=== PATIENT | male | born 1965 | race Caucasian/White ===

== ENCOUNTER → 2019-03-04 09:04 | Outpatient (CLI) | payer OTHER, SELFPAY ==
--- NOTE | 2019-03-04 09:21 | XR_ITS ---
PROCEDURE: XR HIP RT 2-3V W/PELVIS CLINICAL INDICATION: RT HIP PAIN COMPARISON: No exams were available for comparison FINDINGS: There are mild osteoarthritic changes of both hips. There is a lucency along the lateral mid aspect of the acetabulum noted on the AP view. This could be due to an ununited ossification center or a nondisplaced fracture. This does not have a correlate on the left side. Small area of sclerosis which may represent a small bone island is present in the right femoral neck. IMPRESSION: 1. Mild bilateral osteoarthritic changes of the hips. 2. Curvilinear lucency along the posterior acetabulum which may be due to an ununited ossification center or nondisplaced fracture. Please correlate with clinical parameters. CT or MRI may provide further evaluation if clinically desired Dictated by: Mayank Scott MD 03/04/2019 12:37 Electronically signed by Mayank Scott MD in [place] 03/04/2019 12:37
== END ==
PROVIDERS: PCP Family Medicine; Visit Provider Family Medicine
DX: M25.551 Pain in right hip (principal)
CPT/HCPCS: 73502

== ENCOUNTER 2022-11-26 08:02 | Emergency (ER) | payer OTHER, SELFPAY ==
[2022-11-26 08:05] VITALS: BP 135/86; PULSE 76; RESP 18; TEMP 36.7; O2SAT 97
--- NOTE | 2022-11-26 08:38 | EXP.UTC ---
Discharge Plan Disposition Patient Disposition: Home, Self-Care Condition: Good Prescriptions Prescriptions: New erythromycin 5 mg/gram (0.5 %) ointment 0.5 inch ophthalmic (eye) BID 10 Days Qty: 3.5 0RF Referrals Follow up/Referrals: Provider,Referral, MD [Primary Care Provider] - See instructions Activity Restrictions/Add. Instructions Additional Instructions/Restrictions: If Stye (hordeolum) does not reduce in size withing two weeks then go to dairy cattle farmer for evaluation. Clinical Impressions Clinical Impression: Hordeolum externum of right upper eyelid Instructions Patient Instructions: DI for Hordeolum Discharge ED Provider: Angela Rand [facility] [place] [facility] HPI General Stated complaint: EYE INFECTION Mode of Arrival: Ambulatory Source of Information: Patient Limitations: No Limitations Time Seen by Provider: 11/26/22 08:25 Description of Symptoms (Recalled from Triage Doc. by RN): eye infection in his right eye. He states that its swollen and hurts HEENT Symptoms (Recalled from RN notes): Yes Resp Symptoms (Recalled from RN notes): No Skin Symptoms (Recalled from RN notes): No MS Symptoms (Recalled from RN notes): No Functional Status (Recalled from RN notes): n/a History of Present Illness Provider Complaint: Pt reports that for the last couple of days his eye has been sore and now upper right eyelid is red, swollen, and sore. Related Data Previous Rx's Medication Instructions Recorded erythromycin 5 mg/gram (0.5 %) eye 0.5 inch ophthalmic (eye) BID 10 11/26/22 ointment days #3.5 grams Allergies Allergy/AdvReac Type Severity Reaction Status Date / Time Penicillins Allergy Verified 11/26/22 08:28 Worker's Comp Is this a Worker's Comp case?: No [facility] Disclaimer: The information contained in this section may have been updated after the patient was seen, as this information can be updated by other users. Social History Smoking Status: Never smoker alcohol intake: current current occupational status: employed Travel in the last 8 weeks: None caffeine: Yes ROS Obtained: Yes All systems reviewed & no additional complaints except as documented Constitutional Constitutional: Reports system reviewed and no additional complaints, except as documented Eyes Eyes: Reports system reviewed and no additional complaints, except as documented, Reports as per HPI and Reports eye pain ENT Ears, Nose, Mouth, and Throat: Reports system reviewed and no additional complaints, except as documented Cardiovascular Cardiovascular: Reports system reviewed and no additional complaints, except as documented Respiratory Respiratory: Reports system reviewed and no additional complaints, except as documented Gastrointestinal Gastrointestingal: Reports system reviewed and no additional complaints, except as documented Genitourinary Male Genitourinary: Reports system reviewed and no additional complaints, except as documented Musculoskeletal Musculoskeletal: Reports system reviewed and no additional complaints, except as documented Integumentary/Breasts Skin/Breast: Reports system reviewed and no additional complaints, except as documented Neurologic Neurologic: Reports system reviewed and no additional complaints, except as documented Endocrine Endocrine: Reports system reviewed and no additional complaints, except as documented Hematologic/Lymphatic Henatologic/Lymphatic: Reports system reviewed and no additional complaints, except as documented Allergic/Immunologic Allergic/Immunologic: Reports system reviewed and no additional complaints, except as documented Physical Exam General General appearance: alert and in no apparent distress Head Head exam: atraumatic and normocephalic Eye Eye exam: Present PERRL, EOMI, periorbital swelling and periorbital tenderness Expanded Eye Exam Eyelids: left: normal inspection and right: erythema, stye and swelling eyelids Pupils: Bilateral: regular, round Scler
[2022-11-26 08:48] VITALS: BP 135/86; PULSE 76; RESP 18; TEMP 36.7; O2SAT 97
== END 2022-11-26 08:48 | disposition home or self-care (01) ==
PROVIDERS: Emergency Provider Nurse Practitioner Family
DX: H00.011 Hordeolum externum right upper eyelid (principal)
CPT/HCPCS: 99204; 99212; 99214; G0463

== ENCOUNTER 2024-11-30 09:12 | Emergency (ER) | payer OTHER, SELFPAY ==
[2024-11-30 09:18] VITALS: BP 158/86; BP 178/81; PULSE 69; RESP 16; TEMP 36.8; O2SAT 99; BMI 29.7
[2024-11-30 09:29] VITALS: BP 158/86; PULSE 66; O2SAT 99
--- OUTSIDE RECORDS SUMMARY | 2024-11-30 09:34 | XMS_ITS ---
Author Organization [facility] , [facility] Address [address] [place] [address] Phone Care Team Providers Care Wire Splicer Name Role Phone Karely DUNBAR, Marcelo York Unavailable [phone] KAMRAN CEE MD Primary Care Provider [phone] Problems Includes: Active, inactive, and resolved Problems All Visits Onset Date Resolved Date Provider Condition S tatus Joint Pain Hip Right 04/26/2019 Marcelo Cali MD Active Last Documented On 0 10:14AM ; [facility] Plan of Treatment Instructions to patient Lose weight Last Documented On 2 8:16AM ; [facility] Lose weight Last Documented On 2 8:31AM ; [facility] Assessments Includes: Assessments for all patient encounters No Assessments Recorded Instructions Includes: Instructions for all patient encounters Instructions to patient Lose weight Last Documented On 2 8:16AM ; [facility] Lose weight Last Documented On 2 8:31AM ; [facility] Medical Equipment - Implanted Devices Includes: Current and historical Devices No Medical Equipment Recorded Medications Includes: Current and historical Medications Current Medications (continue as prescribed) MOTRIN 800 MG Oral Tablet 04/26/2019 Provider: Diagnosis: Last Documented On 0 10:12AM By Uyen Edwards ; [facility], [facility] Past Medications on file Mobic 15 MG Oral Tablet 07/06/2021 - 08/05/2021 Provid er: Gino Hickman PA-C Diagnosis: take one tablet twice a day Last Documented On 2 9:32AM By Yolande Warner ; [facility], [facility] Mobic 15 MG Oral Tablet 04/26/2019 - 07/25/2019 Provid er: Marcelo Cali MD Diagnosis: once a day Last Documented On 0 11:00AM By Gino Hickman ; [facility], 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 No recent change in diet 07/06/2021 Last Documented On 2 11:49AM ; [facility], [facility] Not a current smoker. 07/06/2021 Last Documented On 2 11:49AM ; [facility], [facility] Non-smoker 07/06/2021 Last Documented On 2 11:49AM ; [facility], [facility] No tobacco use 04/26/2019 Last Documented On 0 1:51PM ; [facility], [facility] Smoking status : Never smoker 04/26/2019 Last Documented On 0 1:51PM ; [facility] Alcohol use 04/26/2019 Last Documented On 0 1:51PM ; [facility], [facility] Caffeine use 04/26/2019 Last Documented On 0 1:51PM ; [facility], [facility] Exercising regularly 04/26/2019 Last Documented On 0 1:51PM ; [facility], [facility] No recent change in diet 04/26/2019 Last Documented On 0 1:51PM ; [facility], [facility] Not a current smoker 04/26/2019 Last Documented On 0 1:51PM ; [facility], [facility] Not using drugs 04/26/2019 Last Documented On 0 1:51PM ; [facility], [facility] Medical History Includes: Medical History in patient's chart Description Last Updated History of Fractures 07/06/2021 Last Documented On 2 11:49AM ; [facility] No recent immunization for pneumococcal pneumonia 07/06/2021 Last Documented On 2 11:49AM ; [facility] Recent immunization for flu 07/06/2021 Last Documented On 2 11:49AM ; [facility], [facility] heartburn/acid reflux 04/26/2019 Last Documented On 0 1:51PM ; [facility] A previous fracture 04/26/2019 Last Documented On 0 1:51PM ; [facility], [facility] Arthritic joint problems 04/26/2019 Last Documented On 0 1:51PM ; [facility], [facility] Family History Includes: Family History in patient's chart Description Last Updated Family history of cancer 04/26/2019 Last Documented On 0 1:51PM ; [facility] Family history of heart disease 04/26/19 Last Documented On 0 1:51PM ; [facility] Review of Systems Review of Systems not supported for this document type No Review of Systems Recorded Mental Status Description No anxiety Functional Status No Functional Status Recorded Physical Exam Physical Exam not supported for this document type No Physical Exam Recorded Immunizations Includes: Immunizations in patient's chart Vaccine Dose # Date Site Reaction(s) Status Source Influenza 1 11/07/2020 Complete (Reported) Patient Last Documented On 2 9:10AM ; [facility], [facility] Allergies Includes: Active, inactive, and resolved Allergies Substance Type Reaction Onset Date Resolved Date Statu s Penicillin G Benzathine Allergy 04/26/2019 Active Last Documented On 2 8:16AM ; [facility], [facility] Insurance Includes: Active Insurance Policies Plan Name Member ID Group # Subscriber Relationship Effect chico Dates 1 - [facility] [id number] Waqar Smith Self 02/06/2019 - Unknown Clinical Notes Includes: Signed Clinical Notes starting from 01/20/2022 No Clinical Notes Recorded
--- OUTSIDE RECORDS SUMMARY | 2024-11-30 09:35 | XMS_ITS | Clinical Summary ---
Author Organization [facility] , [facility] Address [address] [place] [address] Phone Care Team Providers Care Gauge And Weigh Machine Operator Name Role Phone Karely DUNBAR, Marcelo York Unavailable [phone] KAMRAN CEE MD Primary Care Provider [phone] Reason for Visit and Chief Complaint MRI Problems Includes: Problems addressed during this encounter and other active Problems All Visits Onset Date Resolved Date Provider Condition S tatus Joint Pain Hip Right 04/26/2019 Marcelo Cali MD Active Last Documented On 0 10:14AM ; [facility] Plan of Treatment No Plan of Treatment Recorded Assessments Includes: Assessments from this encounter No Assessments Recorded Medical Equipment - Implanted Devices Includes: Current Devices No Medical Equipment Recorded Medications Includes: Medications discussed during this encounter and other current Medications Current Medications (continue as prescribed) MOTRIN 800 MG Oral Tablet 04/26/2019 Provider: Diagnosis: Last Documented On 0 10:12AM By Uyen Edwards ; [facility] Medications Administered Includes: Administered Medications from this encounter No Administered Medications Recorded Results Includes: Results discussed during this encounter No Results Recorded For Specified Dates History of Present Illness Includes: History of Present Illness from this encounter No History of Present Illness Recorded Social History No Social History Recorded - Smoking Status Unknown Medical History Includes: Medical History addressed during this encounter No Medical History Recorded Family History Includes: Family History addressed during this encounter No Family History Recorded Review of Systems Includes: Review of Systems from this encounter No Review of Systems Recorded Mental Status Includes: Mental Status from this encounter No Mental Status Recorded Functional Status Includes: Functional Status from this encounter No Functional Status Recorded Physical Exam Includes: Physical Exam from this encounter No Physical Exam Recorded Allergies Includes: Active Allergies Substance Type Reaction Onset Date Resolved Date Statu s Penicillin G Benzathine Allergy 04/26/2019 Active Last Documented On 2 8:16AM ; [facility], [facility] Encounters Encounter Provider Location Date Check-In Time Check-Out Time Diagnosis MRI [facility] 05/10/2019 9:24AM 10:16AM Insurance Includes: Active Insurance Policies Plan Name Member ID Group # Subscriber Relationship Effect chico Dates 1 - [facility] [id number] Waqar Smith Self 02/06/2019 - Unknown Clinical Notes Includes: Clinical Notes from this encounter No Clinical Notes Recorded
--- OUTSIDE RECORDS SUMMARY | 2024-11-30 09:35 | XMS_ITS | Clinical Summary ---
Author Organization [facility] , [facility] Address [address] [place] [address] Phone Care Team Providers Care Waistline Joiner Name Role Phone Karely DUNBAR, Marcelo York Unavailable + [phone] JAYE DUNBAR, KAMRAN Primary Care Provider [phone] Reason for Visit and Chief Complaint The Chief Complaint is: right hip pain Problems Includes: Problems addressed during this encounter and other active Problems All Visits Onset Date Resolved Date Provider Condition S tatus Joint Pain Hip Right 04/26/2019 Marcelo Cali MD Active Last Documented On 0 10:14AM ; [facility], [facility] Plan of Treatment Instructions to patient Lose weight Last Documented On 2 8:16AM ; [facility], [facility] Assessments Includes: Assessments from this encounter Findings Increasing right hip stiffness, difficulty donning/doffing socks/shoes - Last Documented On 07/20/2021 3:46PM ; [facility], [facility] Mild degenerative changes radiographically, suspected labral tear with previous MRI - Last Documented On 07/20/2021 3:46PM ; [facility], [facility] Instructions Includes: Instructions from this encounter Instructions to patient Lose weight Last Documented On 2 8:16AM ; [facility], [facility] Medical Equipment - Implanted Devices Includes: Current Devices No Medical Equipment Recorded Medications Includes: Medications discussed during this encounter and other current Medications Current Medications (continue as prescribed) MOTRIN 800 MG Oral Tablet 04/26/2019 Provider: Diagnosis: Last Documented On 0 10:12AM By Uyen Edwards ; [facility], [facility] Past Medications on file Mobic 15 MG Oral Tablet 07/06/2021 - 08/05/2021 Provid er: Gino Hickman PA-C Diagnosis: take one tablet twice a day Last Documented On 2 9:32AM By Yolande Warner ; [facility] Mobic 15 MG Oral Tablet 04/26/2019 - 07/25/2019 Provid er: Marcelo Cali MD Diagnosis: once a day Last Documented On 0 11:00AM By Gino Hickman ; [facility] Medications Administered Includes: Administered Medications from this encounter No Administered Medications Recorded Vital Signs Includes: Vital Signs from this encounter Vital Name 07/20/2021 08:23A Blood Pressure Sitting (mmHg) 130/85 Pulse Rate-Sitting (bpm) 58 Height (in) 67 Weight (lb) 191 Body Mass Index (kg/m2) 29.9 Body Surface Area (m2) 2.0 Note: anc Last Documented: On 07/20/2021 8:23AM ; [facility] Results Includes: Results discussed during this encounter No Results Recorded For Specified Dates History of Present Illness Includes: History of Present Illness from this encounter MARCUS Smith is a 55 year old male. 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 07/20/2021 Last Documented On 2 3:46PM ; [facility] No tobacco use 04/26/2019 Last Documented On 2 8:16AM ; [facility] Smoking status : Never smoker 04/26/2019 Last Documented On 2 8:16AM ; [facility] Alcohol use 04/26/2019 Last Documented On 2 8:16AM ; [facility] Caffeine use 04/26/2019 Last Documented On 2 8:16AM ; [facility] Exercising regularly 04/26/2019 Last Documented On 2 8:16AM ; [facility] No recent change in diet 04/26/2019 Last Documented On 2 8:16AM ; [facility] Not a current smoker 04/26/2019 Last Documented On 2 8:16AM ; [facility] Not using drugs 04/26/2019 Last Documented On 2 8:16AM ; [facility] Procedures and Surgical History Includes: Procedures from this encounter Procedures Code Diagnosis Performing Provider Service L ocation Service Date use of tobacco assessment performed 1000F Last Documented On 2 8:16AM ; [facility] Clinical summary provided to patient Last Documented On 2 8:16AM ; [facility] an X-ray was performed 60504 Last Documented On 2 8:16AM ; [facility] history of an X-ray was performed 95738 Last Documented On 2 8:16AM ; [facility] Medical History Includes: Medical History addressed during this encounter Description Last Updated History of Fractures 07/20/2021 Last Documented On 2 3:46PM ; [facility] No recent immunization for pneumococcal pneumonia 07/20/2021 Last Documented On 2 3:46PM ; [facility] Recent immunization for flu 07/20/2021 Last Documented On 2 3:46PM ; [facility] heartburn/acid reflux 04/26/2019 Last Documented On 2 8:16AM ; [facility] A previous fracture 04/26/2019 Last Documented On 2 8:16AM ; [facility] Arthritic joint problems 04/26/2019 Last Documented On 2 8:16AM ; [facility] Family History Includes: Family History addressed during this encounter Description Last Updated Family history of cancer 04/26/2019 Last Documented On 2 8:16AM ; [facility] Family history of heart disease 04/26/19 Last Documented On 2 8:16AM ; [facility] Review of Systems Includes: Review of Systems from this encounter Systemic: Not feeling tired, no recent weight loss, and no recent weight gain. No edema. Head: No headache and no sinus pain. Eyes: Vision problems. No vision problems and no glaucomatous visual field defect. No Cataracts, no Glasses/Contacts, and no Glaucoma. Otolaryngeal: No hearing loss. Tinnitus. No nasal symptoms. Cardiovascular: No chest pain or discomfort, no palpitations, no Hypertension, and no High Cholesterol. Pulmonary: No daytime asthma symptoms, no cough, and no chronic cough. No wheezing. Gastrointestinal: No heartburn and no abdominal pain. No Indigestion, no Acid Reflux, no Peptic Ulcer, no GI Stomach Bleed, and no Ulcers. Endocrine: No hot flashes, no muscle weakness, no Diabetes, no Hypothyroid, and no Hyperthyroid. Hematologic: No easy bleeding, no tendency for easy bruising, and no Anemia. Musculoskeletal: No Arthritis. Lower back pain. No soft tissue swelling. Pain localized to one or more joints. Neurological: No dizziness, no convulsions, and no numbness. Psychological: No anxiety, no emotional lability, no depression, and no insomnia. Not crying for no reason. Skin: No dry skin. No Ulcers, no Scars, no rash, and no ulcers. Allergic and Immunologic: No complaint of seasonal allergic reaction. reviewed 07-20-21 Mental Status Includes: Mental Status from this encounter Description No anxiety Functional Status Includes: Functional Status from this encounter No Functional Status Recorded Physical Exam Includes: Physical Exam from this encounter Allergies Includes: Active Allergies Substance Type Reaction Onset Date Resolved Date Statu s Penicillin G Benzathine Allergy 04/26/2019 Active Last Documented On 2 8:16AM ; [facility] Encounters Encounter Provider Location Date Check-In Time Check-Out Time Diagnosis INJECTION Cullen Lechuga PA-C [facility] 07/21/19 22 8:12AM 8:29AM Insurance Includes: Active Insurance Policies Plan Name Member ID Group # Subscriber Relationship Effect chico Dates 1 - [facility] [id number] Waqar Smith Self 02/06/2019 - Unknown Clinical Notes Includes: Clinical Notes from this encounter No Clinical Notes Recorded
--- OUTSIDE RECORDS SUMMARY | 2024-11-30 09:35 | XMS_ITS | Clinical Summary ---
Author Organization [facility] , [facility] Address [address] [place] [address] Phone Care Team Providers Care Clinic Nurse Name Role Phone Karely DUNBAR, Marcelo York Unavailable [phone] KAMRAN CEE MD Primary Care Provider [phone] Reason for Visit and Chief Complaint The Chief Complaint is: right hip pain Problems Includes: Problems addressed during this encounter and other active Problems All Visits Onset Date Resolved Date Provider Condition S tatus Joint Pain Hip Right 04/26/2019 Marcelo Cali MD Active Last Documented On 0 10:14AM ; [facility], [facility] Plan of Treatment Patient returns today for evaluation of right hip stiffness, anterior hip and groin pain at times. His greatest complaint is difficulty putting on socks and shoes in addition to losing mobility. Has tried yoga, Motrin without benefit. X-rays have no interval change from last time, we discussed conservative effort of injection and physical therapy versus MRI and follow-up with Dr. Lopez for consideration of arthroscopy. Patient wished to proceed with more conservative effort at this time of injection, physical therapy, follow-up 3 months if needed. - Last Documented On 01/28/2022 11:49AM ; [facility] Pending Tests Order Diagnosis Results Due Ordering P rovider Therapy - Physical Therapy Hip 07/06/21 Gino Hickman PA-C Last Documented On 2 8:52AM ; [facility] Instructions to patient Lose weight Last Documented On 2 8:31AM ; [facility] Assessments Includes: Assessments from this encounter Findings Increasing right hip stiffness, difficulty donning/doffing socks/shoes - Last Documented On 01/28/2022 11:49AM ; [facility] Mild degenerative changes radiographically, suspected labral tear with previous MRI - Last Documented On 01/28/2022 11:49AM ; [facility] Instructions Includes: Instructions from this encounter Instructions to patient Lose weight Last Documented On 2 8:31AM ; [facility] Medical Equipment - Implanted Devices Includes: Current Devices No Medical Equipment Recorded Medications Includes: Medications discussed during this encounter and other current Medications New / Renewed during this visit Gino Hickman PA-C on 07/06/2021 Mobic 15 MG Oral Tablet Provider: Gino Hickman PA-C 30 day supply: 60 tablet, 0 refills Diagnosis: take one tablet twice a day Pharmacy: [facility] [id number] [facility] [address] - Last Documented On 2 9:32AM By Yolande Warner ; [facility] Current Medications (continue as prescribed) MOTRIN 800 MG Oral Tablet 04/26/2019 Provider: Diagnosis: Last Documented On 0 10:12AM By Uyen Edwards ; [facility] Past Medications on file Mobic 15 MG Oral Tablet 04/26/2019 - 07/25/2019 Provid er: Marcelo Cali MD Diagnosis: once a day Last Documented On 0 11:00AM By Gino Hickman ; [facility] Medications Administered Includes: Administered Medications from this encounter No Administered Medications Recorded Vital Signs Includes: Vital Signs from this encounter Vital Name 07/06/2021 08:30A Blood Pressure Sitting (mmHg) 149/98 Pulse Rate-Sitting (bpm) 67 Height (in) 67 Weight (lb) 191 Body Mass Index (kg/m2) 29.9 Body Surface Area (m2) 2.0 Note: mj Last Documented: On 07/06/2021 8:30AM ; [facility] Results Includes: Results discussed during this encounter No Results Recorded For Specified Dates History of Present Illness Includes: History of Present Illness from this encounter MARCUS Smith is a 55 year old male. - Allergy list reviewed - Problem list reviewed - Medication list reviewed - Sharp pain Symptoms - Stabbing - Pain is constant (100% of the time) - Pain is dull, aching - Patient pain level from 1-10: 2 - Yes, previous treatment. - History of Home Exercise - History of Injections Medications used for this condition: Social History Description Last Updated No recent change in diet 07/06/2021 Last Documented On 2 11:49AM ; [facility] Not a current smoker. 07/06/2021 Last Documented On 2 11:49AM ; [facility] Non-smoker 07/06/2021 Last Documented On 2 11:49AM ; [facility] No tobacco use 04/26/2019 Last Documented On 2 8:18AM ; [facility] Smoking status : Never smoker 04/26/2019 Last Documented On 2 8:18AM ; [facility] Alcohol use 04/26/2019 Last Documented On 2 8:18AM ; [facility] Caffeine use 04/26/2019 Last Documented On 2 8:18AM ; [facility] Exercising regularly 04/26/2019 Last Documented On 2 8:18AM ; [facility] No recent change in diet 04/26/2019 Last Documented On 2 8:18AM ; [facility] Not a current smoker 04/26/2019 Last Documented On 2 8:18AM ; [facility] Not using drugs 04/26/2019 Last Documented On 2 8:18AM ; [facility] Procedures and Surgical History Includes: Procedures from this encounter Procedures Code Diagnosis Performing Provider Service L ocation Service Date use of tobacco assessment performed 1000F Last Documented On 2 8:31AM ; [facility] follow-up visit in one month with PCP fo r elevated BP Last Documented On 2 8:31AM ; [facility] Clinical summary provided to patient Last Documented On 2 8:18AM ; [facility] an X-ray was performed 54912 Last Documented On 2 9:09AM ; [facility] history of an X-ray was performed 54158 Last Documented On 2 8:18AM ; [facility] Medical History Includes: Medical History addressed during this encounter Description Last Updated History of Fractures 07/06/2021 Last Documented On 2 11:49AM ; [facility] No recent immunization for pneumococcal pneumonia 07/06/2021 Last Documented On 2 11:49AM ; [facility] Recent immunization for flu 07/06/2021 Last Documented On 2 11:49AM ; [facility] heartburn/acid reflux 04/26/2019 Last Documented On 2 8:18AM ; [facility] A previous fracture 04/26/2019 Last Documented On 2 8:18AM ; [facility] Arthritic joint problems 04/26/2019 Last Documented On 2 8:18AM ; [facility] Family History Includes: Family History addressed during this encounter Description Last Updated Family history of cancer 04/26/2019 Last Documented On 2 8:18AM ; [facility] Family history of heart disease 04/26/19 Last Documented On 2 8:18AM ; [facility] Review of Systems Includes: Review [...] No complaint of seasonal allergic reaction. reviewed 07-06-21 Mental Status Includes: Mental Status from this encounter Description No anxiety Functional Status Includes: Functional Status from this encounter No Functional Status Recorded Physical Exam Includes: Physical Exam from this encounter Immunizations Includes: Immunizations addressed during this encounter Vaccine Dose # Date Site Reaction(s) Status Source Influenza 1 11/07/2020 Complete (Reported) Patient Last Documented On 2 9:10AM ; [facility] Allergies Includes: Active Allergies Substance Type Reaction Onset Date Resolved Date Statu s Penicillin G Benzathine Allergy 04/26/2019 Active Last Documented On 2 8:16AM ; [facility] Encounters Encounter Provider Location Date Check-In Time Check- Out Time Diagnosis Follow Up Gino Hickman PA-C [facility] 2 8:16AM 9:03AM Insurance Includes: Active Insurance Policies Plan Name Member ID Group # Subscriber Relationship Effect ch[place] Dates 1 - [facility] [id number] Waqar Smith Self 02/06/2019 - Unknown Clinical Notes Includes: Clinical Notes from this encounter * Progress note Date Encounter Last Documented by 07/06/2021 Follow Up Last documented on 01/28/2022; 11:49 AM, Gino Jordan; [facility] Active Problems & Conditions - Joint Pain in the Right Hip Chief Complaint The Chief Complaint is: Right hip pain. Referred Here Referred by self. History of Present Illness Waqar Smith is a 55 year old male. - Allergy list reviewed - Problem list reviewed - Medication list reviewed - Sharp pain Symptoms - Stabbing - Pain is constant (100% of the time) - Pain is dull, aching - Patient pain level from 1-10: 2 - Yes, previous treatment. - History of Home Exercise - History of Injections Medications used for this condition: Current Medication - MOTRIN 800 MG Oral Tablet take as directed 0 days, 0 refills Past Medical/Surgical History Reported: History of Fractures. Medical: Arthritic joint problems and a fracture. Immunization History: Recent immunization for flu. No recent immunization for pneumococcal pneumonia. Heartburn/acid reflux. Social History Not a current smoker. Current diet: No recent change in diet. No recent change in diet. Caffeine use: Caffeine use. Tobacco use: No tobacco use and not a current smoker. Non-smoker. Smoking status: Never smoker. Alcohol: Alcohol use. Drug Use: Not using drugs. Habits: Exercising regularly. Allergies - Penicillin G Benzathine Family History Cancer Heart disease Review Of Systems Systemic: Not feeling tired, no recent weight [...] No complaint of seasonal allergic reaction. reviewed 07-06-21 Physical Findings - Vitals taken 07/06/2021 08:30 am mj BP-Sitting 149/98 mmHg Pulse Rate-Sitting 67 bpm Height 67 in Weight 191 lbs Body Mass Index 29.9 kg/m2 Body Surface Area 2.0 m2 Standard Measurements: - Patient was overweight. Patient alert and oriented 3 Mildly overweight Normal gait Right hip exam Patient alert and oriented Healthy weight Normal gait Skin clean, dry and intact LLD 2 mm short mild TTP greater trochanter, gluteus medius musculature Right hip Flexion 105-, IR 15-, ER 5- Straight leg raise without difficulty Abductor Strength 4+/5 Strenght [5/5] TA, Gastroc, Quad Sensation intact to light touch throughout Palpable puslses DP/PT Tests Two-view x-ray of the right hip taken today demonstrates mild degenerative change, no interval change since x-ray 2 years ago. MRI from 2 years ago suspicious for possible labral tear Assessment Increasing right hip stiffness, difficulty donning/doffing socks/shoes Mild degenerative changes radiographically, suspected labral tear with previous MRI Previous Tests Imaging: X-Ray: An X-ray was performed. An X-ray was performed. Therapy - Follow-up visit in one month with PCP for elevated BP. - Clinical summary provided to patient. Vaccinations - Influenza Dose #1 Status: Prev Hist Date: 11/07/2020 Counseling/Education - Lose weight Plan StartCited - Other Therapy/Physical Therapy: Hip Instructions: See PT order attached Mobic 15 MG tablet take one tablet twice a day, 30 days, 0 refills EndCited Patient returns today for evaluation of right hip stiffness, anterior hip and groin pain at times. His greatest complaint is difficulty putting on socks and shoes in addition to losing mobility. Has tried yoga, Motrin without benefit. X-rays have no interval change from last time, we discussed conservative effort of injection and physical therapy versus MRI and follow-up with Dr. Lopez for consideration of arthroscopy. Patient wished to proceed with more conservative effort at this time of injection, physical therapy, follow-up 3 months if needed. Notes This dictation was done with voice recognition software and may contain errors and omissions. Practice Management Use of tobacco assessment performed. Care Team - KAMRAN CEE MD - RESOURCE ECONOMIST
--- OUTSIDE RECORDS SUMMARY | 2024-11-30 09:35 | XMS_ITS | Clinical Summary ---
Author Organization [facility] , [facility] Address [address] [place] [address] Phone Care Team Providers Care Forest Science Professor Name Role Phone Karely DUNBAR, Marcelo York Unavailable [phone] JAYE DUNBAR, KAMRAN Primary Care Provider [phone] Reason for Visit and Chief Complaint The Chief Complaint is: right hip pain Problems Includes: Problems addressed during this encounter and other active Problems Current Visit Onset Date Resolved Date Provider Flori lieberman Status Joint Pain Hip Right 04/26/2019 Ayala Cali MD Active Last Documented On 0 10:14AM ; [facility] Plan of Treatment Patient presents today with concerns 1 year history of increasing right anterior hip, groin pain, SI joint pain and right hip stiffness. He has difficulty putting on sock or shoe. For this he has been taking Motrin 800 twice a day at the instruction of previous opinion. 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 No evidence of collapse, no signs of flattening just yet. Today recommend attempt at conservative treatment with Mobic daily, therapeutic/diagnostic intra-articular injection of the right hip, physical therapy for improving range of motion and follow-up with Dr. Mathis 3 months for reevaluation. Also recommend MRI to rule out/evaluate AVN, determine if surgical candidate for core decompression. Right hip injection procedure: All questions were answered to the patient's satisfaction. The patient was placed supine on exam table, fluoroscopic imaging used to plan appropriate needle placement. The area was then marked, ChloraPrep was then used to sterilize the skin. Under ethyl chloride spray topical anesthesia, a 22-gauge spinal needle was then guided to the intra-articular space under fluoroscopy. Once needle appropriately placed, 2 cc of Isovue-300 was then injected to confirm intra-articular placement. The Isovue syringe was then removed from spinal needle and replaced with 10 cc syringe containing 2 cc of 40 mg Kenalog mixed with Marcaine and lidocaine up to 10 cc with good flow. Patient tolerated procedure very well. Hemostasis obtained with a Band-Aid. - Last Documented On 04/26/2019 1:51PM ; [facility] Assessments Includes: Assessments from this encounter Findings Mild right hip DJD, severe stiffness, anterior hip and groin pain rule out AVN - Last Documented On 04/26/2019 1:51PM ; [facility] Medical Equipment - Implanted Devices Includes: Current Devices No Medical Equipment Recorded Medications Includes: Medications discussed during this encounter and other current Medications New / Renewed during this visit Marcelo Cali MD on 04/26/2019 Mobic 15 MG Oral Tablet Provider: Kenya Cali MD 30 day supply: 30 tablet, 2 refills Diagnosis: once a day Pharmacy: [id number] [address], [address] - Last Documented On 0 11:00AM By Gino Hickman ; [facility] Current Medications (continue as prescribed) MOTRIN 800 MG Oral Tablet 04/26/2019 Provider: Diagnosis: Last Documented On 0 10:12AM By Uyen Rosales [facility] Past Medications on file Mobic 15 MG Oral Tablet 07/06/2021 - 08/05/2021 Provid er: Gino Hickman PA-C Diagnosis: take one tablet twice a day Last Documented On 2 9:32AM By Yolande Rosales [facility] Medications Administered Includes: Administered Medications from this encounter No Administered Medications Recorded Vital Signs Includes: Vital Signs from this encounter Vital Name 04/26/2019 10:14A Blood Pressure Sitting (mmHg) 120/77 Pulse Rate-Sitting (bpm) 65 Height (in) 67 Weight (lb) 195 Body Mass Index (kg/m2) 30.5 Body Surface Area (m2) 2.0 Note: rj Last Documented: On 04/26/2019 10:17A M ; [facility], [facility] Results Includes: Results discussed during this encounter No Results Recorded For Specified Dates History of Present Illness Includes: History of Present Illness from this encounter MARCUS Smith is a 53 year old male. - Allergy list reviewed - Medication list reviewed with patient - Medication reconciliation performed - Pain is constant (100% of the time) Previous Treatment Please rate pain on scale of 1 - 10: 2-7 Social History Description Last Updated No tobacco use 04/26/2019 Last Documented On 0 1:51PM ; [facility] Smoking status : Never smoker 04/26/2019 Last Documented On 0 1:51PM ; [facility] Alcohol use 04/26/2019 Last Documented On 0 1:51PM ; [facility] Caffeine use 04/26/2019 Last Documented On 0 1:51PM ; [facility] Exercising regularly 04/26/2019 Last Documented On 0 1:51PM ; [facility] No recent change in diet 04/26/2019 Last Documented On 0 1:51PM ; [facility] Not a current smoker 04/26/2019 Last Documented On 0 1:51PM ; [facility] Not using drugs 04/26/2019 Last Documented On 0 1:51PM ; [facility] Procedures and Surgical History Includes: Procedures from this encounter Procedures Code Diagnosis Performing Provider Service L ocation Service Date Clinical summary provided to patient Last Documented On 0 10:14AM ; [facility] history of an X-ray was performed 00196 Last Documented On 0 10:13AM ; [facility] Medical History Includes: Medical History addressed during this encounter Description Last Updated heartburn/acid reflux 04/26/2019 Last Documented On 0 1:51PM ; [facility] A previous fracture 04/26/2019 Last Documented On 0 1:51PM ; [facility] Arthritic joint problems 04/26/2019 Last Documented On 0 1:51PM ; [facility] Family History Includes: Family History addressed during this encounter Description Last Updated Family history of cancer 04/26/2019 Last Documented On 0 1:51PM ; [facility] Family history of heart disease 04/26/19 20 Last Documented On 0 1:51PM ; [facility] Review of Systems Includes: Review of Systems from this encounter Systemic: Not feeling tired (fatigue), no recent weight loss, and no recent weight gain. No edema. Head: No headache, no sinus pain, and no sinus pain. Eyes: Vision problems. No vision problems and no glaucomatous visual field defect. Otolaryngeal: No hearing loss, no hearing loss, and no tinnitus. No nasal symptoms. Cardiovascular: No chest pain or discomfort, no chest pain or discomfort, and no palpitations. Pulmonary: No daytime asthma symptoms, no cough, and no chronic cough. No wheezing. Gastrointestinal: No heartburn, no heartburn, and no abdominal pain. Endocrine: No hot flashes and no muscle weakness. Hematologic: No easy bleeding and no tendency for easy bruising. Musculoskeletal: Lower back pain. No soft tissue swelling. Pain localized to one or more joints. Neurological: No dizziness, no convulsions, and no numbness. Psychological: No anxiety, no emotional lability, no depression, and no insomnia. Not crying for no reason. Skin: No dry skin, no rash, and no ulcers. Allergic and Immunologic: No complaint of seasonal allergic reaction. Mental Status Includes: Mental Status from this encounter Description No anxiety Functional Status Includes: Functional Status from this encounter No Functional Status Recorded Physical Exam Includes: Physical Exam from this encounter Allergies Includes: Active Allergies Substance Type Reaction Onset Date Resolved Date Statu s Penicillin G Benzathine Allergy 04/26/2019 Active Last Documented On 2 8:16AM ; [facility] Encounters Encounter Provider Location Date Check-In Time Check-Out Time Diagnosis Physician Specified Marcelo Cali MD [facility] 04/26/19 20 9:28AM 11:01AM Insurance Includes: Active Insurance Policies Plan Name Member ID Group # Subscriber Relationship Effect ch[place] Dates 1 - [facility] [id number] Waqar Smith Self 02/06/2019 - Unknown Clinical Notes Includes: Clinical Notes from this encounter No Clinical Notes Recorded
--- OUTSIDE RECORDS SUMMARY | 2024-11-30 09:35 | XMS_ITS ---
Care Plan - [facility], [facility] Created on: November 30, 2024 Waqar Smith : 1965 Sex: Male Author Organization [facility] , [facility] Address [address] [place] [address] Phone Care Team Providers Care Bottle Blower Name Role Phone Karely DUNBAR, Marcelo York Unavailable [phone] KAMRAN CEE MD Primary Care Provider [phone]
--- OUTSIDE RECORDS SUMMARY | 2024-11-30 09:35 | XMS_ITS | Clinical Summary ---
Author Organization [facility] Address [address] [place] [address] Phone Care Team Providers Care Hot Water Heater Installer Name Role Phone Karely DUNBAR, Marcelo York Unavailable + [phone] KAMRAN CEE MD Primary Care Provider +[phone] [...] ; [facility] Plan of Treatment NON-SURGICAL PLAN: MAINTAIN HEALTHY WEIGHT IMPROVE SHOES MEDICATION: MOBIC 15 MG CAN CALL FOR RIGHT HIP CORTISONE INJECTION UNDER FLUORO PRN PAIN REFERRAL TO: PATIENT CAN CALL TO SCHEDULE - Last Documented On 08/12/2019 9:36AM ; [facility] DR. NARAYANAN FOR SECOND OPINION FOLLOW UP: [address] Snowden RIGHT HIP XOA - Last Documented On 08/12/2019 9:36AM ; [facility] Assessments Includes: Assessments from this encounter Findings EARLY RIGHT HIP DEGENERATIVE CHANGES. SIGNIFICANT IMPROVEMENT OF RIGHT BUTTOCK PAIN AND EASE OF SOCK DONNING FOLLOWING INJECTION. TAKING IBUPROFEN. DOES NOT FEEL IF WARRANTS AAMIR AT THIS TIME AND I AGREE. - Last Documented On 08/12/2019 9:36AM ; [facility] Medical Equipment - Implanted Devices Includes: Current Devices No Medical Equipment Recorded Medications Includes: Medications discussed during this encounter and other current Medications Current Medications (continue as prescribed) MOTRIN 800 MG Oral Tablet 04/26/2019 Provider: Diagnosis: Last Documented On 0 10:12AM By Uyen Edwards ; [facility] Past Medications on file Mobic 15 MG Oral Tablet 07/06/2021 - 08/05/2021 Provid er: Gino Hickman PA-C Diagnosis: take one tablet twice a day Last Documented On 2 9:32AM By Yolande Warner ; [facility] Mobic 15 MG Oral Tablet 04/26/2019 - 07/25/2019 Provid er: Marcelo Cali MD Diagnosis: once a day Last Documented On 0 11:00AM By Gino Hickman ; [facility] Medications Administered Includes: Administered Medications from this encounter No Administered Medications Recorded Vital Signs Includes: Vital Signs from this encounter Vital Name 08/08/2019 08:17A Blood Pressure Sitting (mmHg) 134/80 Pulse Rate-Sitting (bpm) 62 Height (in) 67 Note: mhc Last Documented: On 08/08/2019 8:17AM ; [facility] Results Includes: Results discussed during this encounter No Results Recorded For Specified Dates History of Present Illness Includes: History of Present Illness from this encounter MARCUS Smith is a 53 year old male. - Allergy list reviewed - Medication list reviewed with patient - Medication reconciliation performed Social History Description Last Updated No tobacco use 04/26/2019 Last Documented On 0 8:16AM ; [facility] Smoking status : Never smoker 04/26/2019 Last Documented On 0 8:16AM ; [facility] Alcohol use 04/26/2019 Last Documented On 0 8:16AM ; [facility] Caffeine use 04/26/2019 Last Documented On 0 8:16AM ; [facility] Exercising regularly 04/26/2019 Last Documented On 0 8:16AM ; [facility] No recent change in diet 04/26/2019 Last Documented On 0 8:16AM ; [facility] Not a current smoker 04/26/2019 Last Documented On 0 8:16AM ; [facility] Not using drugs 04/26/2019 Last Documented On 0 8:16AM ; [facility] Procedures and Surgical History Includes: Procedures from this encounter Procedures Code Diagnosis Performing Provider Service L ocation Service Date Clinical summary provided to patient Last Documented On 0 8:17AM ; [facility] history of an X-ray was performed 74626 Last Documented On 0 8:17AM ; [facility] Medical History Includes: Medical History addressed during this encounter Description Last Updated heartburn/acid reflux 04/26/2019 Last Documented On 0 8:16AM ; [facility] A previous fracture 04/26/2019 Last Documented On 0 8:16AM ; [facility] Arthritic joint problems 04/26/2019 Last Documented On 0 8:16AM ; [facility] Family History Includes: Family History addressed during this encounter Description Last Updated Family history of cancer 04/26/2019 Last Documented On 0 8:16AM ; [facility] Family history of heart disease 04/26/19 Last Documented On 0 8:16AM ; [facility] Review of Systems Includes: Review of Systems from this encounter Systemic: Not feeling tired (fatigue), no recent weight loss, and no recent weight gain. No edema. Head: No headache and no sinus pain. Eyes: Vision problems. No vision problems and no glaucomatous visual field defect. Otolaryngeal: No hearing loss and no tinnitus. No nasal symptoms. Cardiovascular: No chest pain or discomfort and no palpitations. Pulmonary: No daytime asthma symptoms, no cough, and no chronic cough. No wheezing. Gastrointestinal: No heartburn and no abdominal pain. Endocrine: No hot [...] Documented On 2 8:16AM ; [facility] Encounters Encounter Provider Location Date Check-In Time Check-Out Time Diagnosis Follow Up Marcelo Cali MD [facility] 08/08/19 20 8:06AM 9:26AM Insurance Includes: Active Insurance Policies Plan Name Member ID Group # Subscriber Relationship Effect chico Dates 1 - [facility] [id number] Waqar Smith Self 02/06/2019 - Unknown Clinical Notes Includes: Clinical Notes from this encounter No Clinical Notes Recorded
--- OUTSIDE RECORDS SUMMARY | 2024-11-30 09:36 | XMS_ITS ---
Author Organization Unknown ENCOUNTERS Encounter Performer Location Date Diagnosis Diagnosis Status Emergency [facility] [address] [place] [address] [id number] Pre Admit [facility] [address] [place] [address] [id number] Pre Admit [facility] [address] [place] [address] [id number] Emergency [facility] [address] [place] [address] [id number] [place] *Note: Encounters from your own facility or health system may be excluded. Allergies, Adverse Reactions, Alerts Allergen Type Severity Identification Date Penicillins drug allergy 1 [id number] Medications Name Date Quantity Days Supplied GPI Number
--- NOTE | 2024-11-30 09:43 | ED_ITS ---
Discharge Plan Disposition Patient Disposition: Home, Self-Care Prescriptions Prescriptions: No Action erythromycin 5 mg/gram (0.5 %) ointment 0.5 inch ophthalmic (eye) BID 10 Days Qty: 3.5 0RF Referrals Follow up/Referrals: Provider,Referral, MD [Primary Care Provider, Medical] - See instructions Activity Restrictions/Add. Instructions Additional Instructions/Restrictions: At this time it was felt you are safe to be discharged home. If new or worsening symptoms please do not hesitate to return the emergency department. Please follow-up with your family doctor in 10 days to see if the stitches are ready to come out. Do not soak your hand in water or swim or get in a hot tub, it is okay to shower. Please take your splint off every day and stabilize the joint where your sutures are however bend your joint where your finger comes off of your wrist and your distal joint of your fingertip so you could maintain good range of motion. Do not bend the joint where the sutures are as this will open up and be difficult to repair. If any signs of infection such as spreading redness, swelling of your finger like a sausage, leaking pus, any concerns at all present here immediately for evaluation. Clinical Impressions Clinical Impression: Laceration of finger of right hand Instructions Patient Instructions: DI for Laceration Repair Print Language Print Language: Maltese Discharge ED Provider: Tanner Lynch General Adult HPI General Chief complaint: Wound/Laceration Stated complaint: AO 11/30/2024 right hand/finger laceration Time Seen by Provider: 11/30/24 09:16 Mode of Arrival: Ambulatory Source of Information: Patient Description of Symptoms (Recalled from ER Triage Doc. by RN): pt presents to ED with c/o laceration to right hand second knuckle. pt was working with a woodworkng knife and it slipped hit his knuckle. pt reports up to date on tetanus shot. History of Present Illness HPI narrative: Patient is a 59-year-old male right-handed who presents emergency department for evaluation of traumatic injury to his PIP joint on his right dorsal third knuckle. Patient was woodworking when he inadvertently sliced over his knuckle causing him to have a wound and presents here for continued evaluation. Tdap up-to-date. No other acute complaints at this time. Please note that above description of symptoms, in this electronic medical record under categorization of recalled from ER triage doctor by RN are reflective of an initial nursing assessment, however, is not reflective of my full history and physical exam that was personally taken and clarified. Consequentially, this preceding description of symptoms, which may include the patient's categorized chief complaint in the EMR, do not reflect my personal clinical impression, and the ultimate description of history of present illness and patient stated complaints should be deferred to this section of the note. Unless stated otherwise or congruent with this section of the note, additional signs, symptoms, or incongruence should be interpreted as inaccurate with my clinical impression. Related Data Previous Rx's ?Medication ?Instructions ?Recorded erythromycin 5 mg/gram (0.5 %) eye 0.5 inch ophthalmic (eye) BID 10 11/26/22 ointment days #3.5 grams Allergies Allergy/AdvReac Type Severity Reaction Status Date / Time Penicillins Allergy Verified 11/26/22 08:28 [facility] Disclaimer: The information contained in this section may have been updated after the patient was seen, as this information can be updated by other users. Social History Smoking Status: Never smoker alcohol intake: current alcohol intake frequency: holidays/special occasions only current occupational status: employed Travel in the last 8 weeks?: None caffeine: Yes Have you lived/traveled outside US in past 30 days?: No Contact w/someone who lives/traveled outside US past 30 days?: No Exposure to someone with infectious disease in past 14 days?: No Do you have a fever (greater than 100.4 F or 38 C)?: No Have you tested positive for COVID-19?: No Exposed to someone with COVID-19 in past 14 days?: No Do you have a sore throat?: No Do you have a cough?: No Do you have any weakness?: No Do you have any diarrhea?: No Are you experiencing any unusual bleeding?: No Do you have any muscle aches/pain?: No Do you have any abdominal pain?: No Are you experiencing loss of taste or smell?: No Other Medical History Have you received the Pneumonia Vaccine: No ROS Obtained: Yes Systems reviewed as appropriate & no additional complaints except as documented Physical Exam General General appearance: alert and in no apparent distress Head Head exam: atraumatic and normocephalic Eye Eye exam: Present PERRL and EOMI ENT ENT exam: Present mucous membranes moist Neck Neck exam: Present normal inspection Chest Chest inspection: Present symmetric chest wall rise Respiratory Respiratory exam: Absent respiratory distress Cardiovascular Cardiovascular exam: Present regular rate and normal rhythm Extremities Exam Extremities exam: Present other (2 cm curvilinear laceration over the right dorsal third PIP joint that is oozing blood. Distally neurovascularly intact. Full flexion and extension at all joints of the affected finger.) Neurological Exam Neurological exam: Present alert Psychiatric Psychiatric exam: Present normal affect Skin Skin exam: Present warm and dry Medical Decision Making Medical Records Screening: Per USPSTF and CDC recommendations, given the prevalence of disease in our region, it is our hospital?s policy to screen for HIV and viral Hepatitis for all patients aged 18 and over and those with ongoing risk factors. Raj Inquiry Pt receiving controlled substance: No Vital Signs: 11/30/24 09:18 11/30/24 09:18 11/30/24 09:29 Temperature 98.2 F Temperature Source Oral Pulse Rate 69 66 Pulse Rate [Left Radial] 69 Respiratory Rate 16 Blood Pressure 178/81 H 158/86 H Blood Pressure [Right Arm] 158/86 H Blood Pressure Mean [Right Arm] 110 02 Sat by Pulse Oximetry 99 99 99 Medical Decision Narrative: In summary patient is a 59-year-old male past medical history described above presents Emergency Department for evaluation of traumatic injury to his right third PIP joint. Patient is hemodynamically stable nontoxic-appearing upon arrival, afebrile. Tetanus is up-to-date. X-ray was considered but no concern for foreign body or fracture based on history and physical exam will be deferred. Patient has a 2 cm curvilinear laceration which underwent primary repair with success. Patient is appropriate for discharge at this time. Procedure: Procedure performed was laceration repair. Procedure performed by Tanner Lynch. Digital block of the affected digit performed with 1% lidocaine without epinephrine, 7 cc, partial anesthesia achieved. Irrigated with 1 L of sterile water. Wound was repaired with 4-0 Ethilon, number of sutures placed with 7, simple interrupted fashion. Wound was dressed with nonstick dressing and finger was splinted in extension. Patient tolerated the procedure well there were no immediate complications. Plastic Maker disclaimer Much of this encounter note is an electronic coal dumping equipment operator spoken language to p rinted text. Electronic coal dumping equipment operator of the spoken language may permit errors. Although I have reviewed the note, some errors may still exist. Critical Care Critical Care Time Critical Care Time: No
[2024-11-30 10:00] VITALS: BP 155/82; PULSE 64; RESP 16; TEMP 36.8; O2SAT 99
== END 2024-11-30 10:02 | disposition home or self-care (01) ==
PROVIDERS: Emergency Provider Emergency Medicine
DX: S61.212A Laceration without foreign body of right middle finger without damage to nail, initial encounter (principal); W26.8XXA Contact with other sharp object(s), not elsewhere classified, initial encounter
CPT/HCPCS: 12001; 99283

== ENCOUNTER 2024-12-26 23:08 | Emergency (ER) | payer OTHER, SELFPAY ==
--- NOTE | 2024-12-26 23:16 | CT_ITS ---
PROCEDURE INFORMATION: Exam: CT Abdomen And Pelvis With Contrast Exam date and time: 12/26/2024 11:55 PM Age: 59 years old Clinical indication: Abdominal pain; Additional info: Suprapubic/low abd pain w/ bloody diarrhea TECHNIQUE: Imaging protocol: Computed tomography of the abdomen and pelvis with contrast. Radiation optimization: All CT scans at this facility use at least one of these dose optimization techniques: automated exposure control; mA and/or kV adjustment per patient size (includes targeted exams where dose is matched to clinical indication); or iterative reconstruction. Contrast material: ISOVUE; Contrast volume: 75 ml; Contrast route: IV; COMPARISON: CR XR HIP RT 2-3V W/PELVIS 03/04/2019 9:36 AM FINDINGS: Lungs: No acute finding. Liver: Normal. No mass. Gallbladder and biliary ducts: Normal. No calcified stones. No ductal dilation. Pancreas: Normal. No ductal dilation. Spleen: Normal. No splenomegaly. Adrenal glands: Normal. No mass. Kidneys and ureters: Normal. No hydronephrosis. Stomach and bowel: The descending and sigmoid colon are collapsed. There is edematous wall thickening of the distal descending and proximal sigmoid colon consistent with colitis. No bowel obstruction. The stomach and small bowel are unremarkable. Appendix: No evidence of appendicitis. Intraperitoneal space: Unremarkable. No free air. No significant fluid collection. Vasculature: Unremarkable. No abdominal aortic aneurysm. Lymph nodes: Unremarkable. No enlarged lymph nodes. Urinary bladder: Unremarkable as visualized. Reproductive: The prostate gland is enlarged. Bones/joints: There are moderate degenerative changes of the spine. No acute fracture. Soft tissues: There is a small fat containing left inguinal hernia. IMPRESSION: 1. Distal descending and proximal sigmoid colitis. 2. Other nonurgent findings as noted.
[2024-12-26 23:17] VITALS: BP 176/96; PULSE 91; RESP 16; TEMP 36.6; O2SAT 96; BMI 29.7
[2024-12-26] MEDS: KETOROLAC 30MG/ML VIAL 30 MG IV (23:23)
[2024-12-26] MEDS: LACTATED RINGERS 1000ML 1,000 ML 999 ML IV (23:24)
[2024-12-26 23:29] LABS: Hematocrit 45.1 % (42.0-52.0); Hemoglobin 15.5 g/dL (14.1-18.0); Immature Granulocytes % 0.6 %; Mean Corpuscular HGB Conc 34.4 g/dL (31.8-35.4); Mean Corpuscular Hemoglobin 29.1 pg (27.0-31.2); Mean Corpuscular Volume 84.8 fl (80-94); Nucleated Red Blood Cells % 0 %; Platelet Count 245 K/mm3 (142-424); Red Blood Count 5.32 M/mm3 (4.60-6.20); Red Cell Distribution Width-SD 43.8 fL; White Blood Count 15.7 K/mm3 (4.8-10.8)
--- OUTSIDE RECORDS SUMMARY | 2024-12-26 23:30 | XMS_ITS | Clinical Summary ---
Author Organization [facility] Address [address] [place] [address] Phone Care Team Providers Care Body Builder Apprentice Name Role Phone Karely DUNBAR, Marcelo York Unavailable [phone] KAMRAN CEE MD Primary Care Provider [phone] Reason for Visit and Chief Complaint The Chief Complaint is: right hip pain Problems Includes: Problems addressed during this encounter and other active Problems All Visits Onset Date Resolved Date Provider Condition S tatus Joint Pain Hip Right 04/26/2019 Marcelo Cali MD Active Last Documented On 0 10:14AM ; [facility] Plan of Treatment NON-SURGICAL PLAN: MAINTAIN HEALTHY WEIGHT IMPROVE SHOES MEDICATION: MOBIC 15 MG CAN CALL FOR RIGHT HIP CORTISONE INJECTION UNDER FLUORO PRN PAIN REFERRAL TO: PATIENT CAN CALL TO SCHEDULE - Last Documented On 08/12/2019 9:36AM ; [facility] DR. NARAYANAN FOR SECOND OPINION FOLLOW UP: [address] Snowden RIGHT HIP XOA - Last Documented On 08/12/2019 9:36AM ; [facility] Assessments Includes: Assessments from this encounter Findings EARLY RIGHT HIP DEGENERATIVE CHANGES. SIGNIFICANT IMPROVEMENT OF RIGHT BUTTOCK PAIN AND EASE OF SOCK DONNING FOLLOWING INJECTION. TAKING IBUPROFEN. DOES NOT FEEL IF WARRANTS AAMIR AT THIS TIME AND I AGREE. - Last Documented On 08/12/2019 9:36AM ; [facility] Medical Equipment - Implanted Devices Includes: [...] day Last Documented On 0 11:00AM By Gion Hickman ; [facility] Medications Administered [...] patient Last Documented On 0 8:17AM ; [facility] history of an X-ray was performed [id number] Last Documented On 0 8:17AM ; [facility] Medical History Includes: Medical History addressed during this encounter Description Last Updated heartburn/acid reflux 04/26/2019 Last Documented On 0 8:16AM ; [facility] A previous fracture 04/26/2019 Last Documented On 0 8:16AM ; [facility] Arthritic joint problems 04/26/2019 Last Documented On 0 8:16AM ; [facility] Family History Includes: Family History addressed during this encounter Description Last Updated Family history of cancer 04/26/2019 Last Documented On 0 8:16AM ; [facility] Family history of heart disease 04/26/19 Last Documented On 0 8:16AM ; [facility] Review of Systems Includes: Review of [...] Active Last Documented On 2 8:16AM ; [facility] Encounters Encounter Provider Location Date Check-In Time Check-Out Time Diagnosis Follow Up Marcelo Cali MD [facility] 08/08/19 20 8:06AM 9:26AM Insurance Includes: Active Insurance Policies Plan Name Member ID Group # Subscriber Relationship Effect chico Dates 1 - [facility] [id number] Waqar Smith Self 02/06/2019 - Unknown Clinical Notes Includes: Clinical Notes from this encounter No Clinical Notes Recorded
--- OUTSIDE RECORDS SUMMARY | 2024-12-26 23:30 | XMS_ITS | Clinical Summary ---
Author Organization [facility] , [facility] Address [address] [place] [address] Phone Care Team Providers Care Airline Attendant Name Role Phone Karely DUNBAR, Marcelo York Unavailable [phone] JAYE DUNBAR, KAMRAN Primary Care Provider [phone] Reason for Visit and Chief Complaint The Chief Complaint is: right hip pain Problems Includes: Problems addressed during this encounter and other active Problems Current Visit Onset Date Resolved Date Provider Flori lieberman Status Joint Pain Hip Right 04/26/2019 Ayala Cali MD Active Last Documented On 0 10:14AM ; [facility] Plan of Treatment Patient presents today with [...] - Last Documented On 04/26/2019 1:51PM ; [facility] Assessments Includes: Assessments from this encounter Findings Mild right hip DJD, severe stiffness, anterior hip and groin pain rule out AVN - Last Documented On 04/26/2019 1:51PM ; [facility] Medical Equipment - Implanted Devices Includes: Current Devices No Medical Equipment Recorded Medications Includes: Medications discussed during this encounter and other current Medications New / Renewed during this visit Marcelo Cali MD on 04/26/2019 Mobic 15 MG Oral Tablet Provider: Kenya Cali MD 30 day supply: 30 tablet, 2 refills Diagnosis: once a day Pharmacy: [id number] [address], [address] - Last Documented On 0 11:00AM By Gino Hickman ; [facility] Current Medications (continue as prescribed) MOTRIN 800 MG Oral Tablet 04/26/2019 Provider: Diagnosis: Last Documented On 0 10:12AM By Uyen Rosales [facility] Past Medications on file Mobic 15 MG Oral Tablet 07/06/2021 - 08/05/2021 Provid er: Gino Hickman PA-C Diagnosis: take one tablet twice a day Last Documented On 2 9:32AM By Yolande Rosales [facility] Medications Administered Includes: Administered Medications from this encounter No Administered Medications Recorded Vital Signs Includes: Vital Signs from this encounter Vital Name 04/26/2019 10:14A Blood Pressure Sitting (mmHg) 120/77 Pulse Rate-Sitting (bpm) 65 Height (in) 67 Weight (lb) 195 Body Mass Index (kg/m2) 30.5 Body Surface Area (m2) 2.0 Note: rj Last Documented: On 04/26/2019 10:17A M ; [facility] Results Includes: Results discussed during this [...] 04/26/2019 Last Documented On 0 1:51PM ; [facility] Smoking status : Never smoker 04/26/2019 Last Documented On 0 1:51PM ; [facility] Alcohol use 04/26/2019 Last Documented On 0 1:51PM ; [facility] Caffeine use 04/26/2019 Last Documented On 0 1:51PM ; [facility] Exercising regularly 04/26/2019 Last Documented On 0 1:51PM ; [facility] No recent change in diet 04/26/2019 Last Documented On 0 1:51PM ; [facility] Not a current smoker 04/26/2019 Last Documented On 0 1:51PM ; [facility] Not using drugs 04/26/2019 Last Documented On 0 1:51PM ; [facility] Procedures and Surgical History Includes: Procedures from this encounter Procedures Code Diagnosis Performing Provider Service L ocation Service Date Clinical summary provided to patient Last Documented On 0 10:14AM ; [facility] history of an X-ray was performed [id number] Last Documented On 0 10:13AM ; [facility] Medical History Includes: Medical History addressed during this encounter Description Last Updated heartburn/acid reflux 04/26/2019 Last Documented On 0 1:51PM ; [facility] A previous fracture 04/26/2019 Last Documented On 0 1:51PM ; [facility] Arthritic joint problems 04/26/2019 Last Documented On 0 1:51PM ; [facility] Family History Includes: Family History addressed during this encounter Description Last Updated Family history of cancer 04/26/2019 Last Documented On 0 1:51PM ; [facility] Family history of heart disease 04/26/19 20 Last Documented On 0 1:51PM ; [facility] Review of Systems Includes: Review of [...] Active Last Documented On 2 8:16AM ; [facility] Encounters Encounter Provider Location Date Check-In Time Check-Out Time Diagnosis Physician Specified Marcelo Cali MD [facility] 04/26/19 20 9:28AM 11:01AM Insurance Includes: Active Insurance Policies Plan Name Member ID Group # Subscriber Relationship Effect chico Dates 1 - [facility] [id number] Waqar Smith Self 02/06/2019 - Unknown Clinical Notes Includes: Clinical Notes from this encounter No Clinical Notes Recorded
--- OUTSIDE RECORDS SUMMARY | 2024-12-26 23:30 | XMS_ITS ---
Author Organization Unknown ENCOUNTERS Encounter Performer Location Date Diagnosis Diagnosis Status Pre Admit [place] [address] [id number] Emergency [address] [place] [address] [id number] Emergency [place] [address] [place] [address] [id number] [place] Pre Admit [address] [id number] Pre Admit [address] [place] [address] [phone] Emergency [address] [place] [address] [id number] [place] *Note: Encounters from your own facility or health system may be excluded. Allergies, Adverse Reactions, Alerts Allergen Type Severity Identification Date Penicillins drug allergy 1 [id number] Medications Name Date Quantity Days Supplied GPI Number
--- OUTSIDE RECORDS SUMMARY | 2024-12-26 23:30 | XMS_ITS | Clinical Summary ---
Author Organization [facility] , [facility] Address [address] [place] [address] Phone Care Team Providers Care Paste Mixing Supervisor Name Role Phone Karely DUNBAR, Marcelo York Unavailable + [phone] KAMRAN CEE MD Primary Care Provider [phone] Reason for Visit and Chief Complaint MRI Problems Includes: Problems addressed during this encounter and other active Problems All Visits Onset Date Resolved Date Provider Condition S tatus Joint Pain Hip Right 04/26/2019 Marcelo Cali MD Active Last Documented On 0 10:14AM ; [facility] Plan of Treatment No Plan [...] On 0 10:12AM By Uyen Edwards ; [facility] Medications Administered Includes: Administered Medications [...] Active Last Documented On 2 8:16AM ; [facility], [facility] Encounters Encounter Provider Location Date Check-In Time Check-Out Time Diagnosis MRI [facility] 05/10/2019 9:24AM 10:16AM Insurance Includes: Active Insurance Policies Plan Name Member ID Group # Subscriber Relationship Effect chico Dates 1 - [facility] [id number] Waqar Smith Self 02/06/2019 - Unknown Clinical Notes Includes: Clinical Notes from this encounter No Clinical Notes Recorded
--- OUTSIDE RECORDS SUMMARY | 2024-12-26 23:30 | XMS_ITS | Clinical Summary ---
Author Organization [facility] , [facility] Address [address] [place] [address] Phone Care Team Providers Care Dietary Manager Name Role Phone Karely DUNBAR, Marcelo York Unavailable + [phone] JAYE DUNBAR, KAMRAN Primary Care Provider [phone] Reason for Visit and Chief Complaint The Chief Complaint is: right hip pain Problems Includes: Problems addressed during this encounter and other active Problems All Visits Onset Date Resolved Date Provider Condition S tatus Joint Pain Hip Right 04/26/2019 Marcelo Cali MD Active Last Documented On 0 10:14AM ; [facility], [facility] Plan of Treatment Instructions to patient Lose weight Last Documented On 2 8:16AM ; [facility] Assessments Includes: Assessments from this encounter Findings Increasing right hip stiffness, difficulty donning/doffing socks/shoes - Last Documented On 07/20/2021 3:46PM ; [facility] Mild degenerative changes radiographically, suspected labral tear with previous MRI - Last Documented On 07/20/2021 3:46PM ; [facility] Instructions Includes: Instructions from this encounter Instructions to patient Lose weight Last Documented On 2 8:16AM ; [facility] Medical Equipment - Implanted Devices Includes: Current Devices No Medical Equipment Recorded Medications Includes: Medications discussed during this encounter and other current Medications Current Medications (continue as prescribed) MOTRIN 800 MG Oral Tablet 04/26/2019 Provider: Diagnosis: Last Documented On 0 10:12AM By Uyen Edwards ; [facility] Past Medications on file Mobic [...] reviewed Social History Description Last Updated 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 07/20/2021 Last Documented On 2 3:46PM ; [facility] No tobacco use 04/26/2019 Last [...] Documented On 2 8:16AM ; [facility] No recent change in diet 04/26/2019 Last Documented On 2 8:16AM ; [facility] Not a current smoker 04/26/2019 Last Documented On 2 8:16AM ; [facility] Not using drugs 04/26/2019 Last Documented On 2 8:16AM ; [facility] Procedures and Surgical History Includes: Procedures from this encounter Procedures Code Diagnosis Performing Provider Service L ocation Service Date use of tobacco assessment performed 1000F Last Documented On 2 8:16AM ; [facility] Clinical summary provided to patient Last Documented On 2 8:16AM ; [facility] an X-ray was performed 89186 Last Documented On 2 8:16AM ; [facility] history of an X-ray was performed 53132 Last Documented On 2 8:16AM ; [facility] Medical History Includes: Medical History addressed during this encounter Description Last Updated History of Fractures 07/20/2021 Last Documented On 2 3:46PM ; [facility] No recent immunization for pneumococcal pneumonia 07/20/2021 Last Documented On 2 3:46PM ; [facility] Recent immunization for flu 07/20/2021 Last Documented On 2 3:46PM ; [facility] heartburn/acid reflux 04/26/2019 Last Documented On 2 8:16AM ; [facility] A previous fracture 04/26/2019 Last Documented On 2 8:16AM ; [facility] Arthritic joint problems 04/26/2019 Last Documented On 2 8:16AM ; [facility] Family History Includes: Family History addressed during this encounter Description Last Updated Family history of cancer 04/26/2019 Last Documented On 2 8:16AM ; [facility] Family history of heart disease 04/26/19 Last Documented On 2 8:16AM ; [facility] Review of Systems Includes: Review of [...] Active Last Documented On 2 8:16AM ; [facility] Encounters Encounter Provider Location Date Check-In Time Check-Out Time Diagnosis INJECTION Cullen Lechuga PA-C [facility] 07/21/19 22 8:12AM 8:29AM Insurance Includes: Active Insurance Policies Plan Name Member ID Group # Subscriber Relationship Effect chico Dates 1 - [facility] [id number] Waqar Smith Self 02/06/2019 - Unknown Clinical Notes Includes: Clinical Notes from this encounter No Clinical Notes Recorded
--- OUTSIDE RECORDS SUMMARY | 2024-12-26 23:30 | XMS_ITS | Clinical Summary ---
Author Organization [facility] Address [address] [place] [address] Phone Care Team Providers Care Meat And Poultry Inspector Name Role Phone Karely DUNBAR, Marcelo York Unavailable + [phone] KAMRAN CEE MD Primary Care Provider [phone] Reason for Visit and Chief Complaint The Chief Complaint is: right hip pain Problems Includes: Problems addressed during this encounter and other active Problems All Visits Onset Date Resolved Date Provider Condition S tatus Joint Pain Hip Right 04/26/2019 Marcelo Cali MD Active Last Documented On 0 10:14AM ; [facility] Plan of Treatment Patient returns today for [...] - Last Documented On 01/28/2022 11:49AM ; [facility] Pending Tests Order Diagnosis Results Due Ordering P rovider Therapy - Physical Therapy Hip 07/06/21 Gino Hickman PA-C Last Documented On 2 8:52AM ; [facility] Instructions to patient Lose weight Last Documented On 2 8:31AM ; [facility] Assessments Includes: Assessments from this encounter Findings Increasing right hip stiffness, difficulty donning/doffing socks/shoes - Last Documented On 01/28/2022 11:49AM ; [facility] Mild degenerative changes radiographically, suspected labral tear with previous MRI - Last Documented On 01/28/2022 11:49AM ; [facility] Instructions Includes: Instructions from this encounter Instructions to patient Lose weight Last Documented On 2 8:31AM ; [facility] Medical Equipment - Implanted Devices Includes: Current Devices No Medical Equipment Recorded Medications Includes: Medications discussed during this encounter and other current Medications New / Renewed during this visit Gino Hickman PA-C on 07/06/2021 Mobic 15 MG Oral Tablet Provider: Gino Hickman PA-C 30 day supply: 60 tablet, 0 refills Diagnosis: take one tablet twice a day Pharmacy: [facility] [phone] [facility], [id number] - Last Documented On 2 9:32AM By Yolande Warner ; [facility] Current Medications (continue as prescribed) MOTRIN 800 MG Oral Tablet 04/26/2019 Provider: Diagnosis: Last Documented On 0 10:12AM By Uyen Edwards ; [facility] Past Medications on file Mobic 15 MG Oral Tablet 04/26/2019 - 07/25/2019 Provid er: Marcelo Cali MD Diagnosis: once a day Last Documented On 0 11:00AM By Gino Hickman ; [facility] Medications Administered Includes: Administered Medications from this encounter No Administered Medications Recorded Vital Signs Includes: Vital Signs from this encounter Vital Name 07/06/2021 08:30A Blood Pressure Sitting (mmHg) 149/98 Pulse Rate-Sitting (bpm) 67 Height (in) 67 Weight (lb) 191 Body Mass Index (kg/m2) 29.9 Body Surface Area (m2) 2.0 Note: mj Last Documented: On 07/06/2021 8:30AM ; [facility] Results Includes: Results discussed during [...] Last Documented On 2 11:49AM ; [facility] Not a current smoker. 07/06/2021 Last Documented On 2 11:49AM ; [facility] Non-smoker 07/06/2021 Last Documented On 2 11:49AM ; [facility] No tobacco use 04/26/2019 Last Documented On 2 8:18AM ; [facility] Smoking status : Never smoker 04/26/2019 Last Documented On 2 8:18AM ; [facility] Alcohol use 04/26/2019 Last Documented On 2 8:18AM ; [facility] Caffeine use 04/26/2019 Last Documented On 2 8:18AM ; [facility] Exercising regularly 04/26/2019 Last Documented On 2 8:18AM ; [facility] No recent change in diet 04/26/2019 Last Documented On 2 8:18AM ; [facility] Not a current smoker 04/26/2019 Last Documented On 2 8:18AM ; [facility] Not using drugs 04/26/2019 Last Documented On 2 8:18AM ; [facility] Procedures and Surgical History Includes: Procedures from this encounter Procedures Code Diagnosis Performing Provider Service L ocation Service Date use of tobacco assessment performed 1000F Last Documented On 2 8:31AM ; [facility] follow-up visit in one month with PCP fo r elevated BP Last Documented On 2 8:31AM ; [facility] Clinical summary provided to patient Last Documented On 2 8:18AM ; [facility] an X-ray was performed 04127 Last Documented On 2 9:09AM ; [facility] history of an X-ray was performed 52489 Last Documented On 2 8:18AM ; [facility] Medical History Includes: Medical History addressed during this encounter Description Last Updated History of Fractures 07/06/2021 Last Documented On 2 11:49AM ; [facility] No recent immunization for pneumococcal pneumonia 07/06/2021 Last Documented On 2 11:49AM ; [facility] Recent immunization for flu 07/06/2021 Last Documented On 2 11:49AM ; [facility] heartburn/acid reflux 04/26/2019 Last Documented On 2 8:18AM ; [facility] A previous fracture 04/26/2019 Last Documented On 2 8:18AM ; [facility] Arthritic joint problems 04/26/2019 Last Documented On 2 8:18AM ; [facility] Family History Includes: Family History addressed during this encounter Description Last Updated Family history of cancer 04/26/2019 Last Documented On 2 8:18AM ; [facility] Family history of heart disease 04/26/19 Last Documented On 2 8:18AM ; [facility] Review of Systems Includes: Review of [...] Patient Last Documented On 2 9:10AM ; [facility] Allergies Includes: Active Allergies Substance Type Reaction Onset Date Resolved Date Statu s Penicillin G Benzathine Allergy 04/26/2019 Active Last Documented On 2 8:16AM ; [facility] Encounters Encounter Provider Location Date Check-In Time Check- Out Time Diagnosis Follow Up Gino Hickman PA-C [facility] 2 8:16AM 9:03AM Insurance Includes: Active Insurance Policies Plan Name Member ID Group # Subscriber Relationship Effect chico Dates 1 - [facility] [id number] Waqar Smith Self 02/06/2019 - Unknown Clinical Notes Includes: Clinical Notes from this encounter * Progress note Date Encounter Last Documented by 07/06/2021 Follow Up Last documented on 01/28/2022; 11:49 AM, Gino Jordan; [facility] Active Problems & Conditions - Joint [...] Care Team - KAMRAN CEE MD - OPTICAL INSTRUMENT ASSEMBLY SUPERVISOR
--- OUTSIDE RECORDS SUMMARY | 2024-12-26 23:30 | XMS_ITS ---
Author Organization [facility] , [facility] Address [address] [place] [address] Phone Care Team Providers Care Coordinate Measuring Machine Technician Name Role Phone Karely DUNBAR, Marcelo York Unavailable [phone] KAMRAN CEE MD Primary Care Provider [phone] Problems Includes: Active, inactive, and resolved Problems All Visits Onset Date Resolved Date Provider Condition S tatus Joint Pain Hip Right 04/26/2019 Marcelo Cali MD Active Last Documented On 0 10:14AM ; [facility] Plan of Treatment Instructions to patient Lose weight Last Documented On 2 8:16AM ; [facility] Lose weight Last Documented On 2 8:31AM ; [facility] Assessments Includes: Assessments for all patient encounters No Assessments Recorded Instructions Includes: Instructions for all patient encounters Instructions to patient Lose weight Last Documented On 2 8:16AM ; [facility] Lose weight Last Documented On 2 8:31AM ; [facility] Medical Equipment - Implanted Devices Includes: Current and historical Devices No Medical Equipment Recorded Medications Includes: Current and historical Medications Current Medications (continue as prescribed) MOTRIN 800 MG Oral Tablet 04/26/2019 Provider: Diagnosis: Last Documented On 0 10:12AM By Uyen Edwards ; [facility] Past Medications on file Mobic 15 MG Oral Tablet 07/06/2021 - 08/05/2021 Provid er: Gino Hickman PA-C Diagnosis: take one tablet twice a day Last Documented On 2 9:32AM By Yolande Warner ; [facility] Mobic 15 MG Oral Tablet 04/26/2019 - 07/25/2019 Provid er: Marcelo Cali MD Diagnosis: once a day Last Documented On 0 11:00AM By Gino Hickman ; [facility] Medications Administered Includes: Administered Medications in patient's chart No Administered Medications Recorded Results Includes: Results from 12/27/2023 through 12/26/2024 No Results Recorded For Specified Dates History of Present Illness History of Present Illness not supported for this document type No History of Present Illness Recorded Social History Description 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 07/06/2021 Last Documented On 2 11:49AM ; [facility] Non-smoker 07/06/2021 Last Documented On 2 11:49AM ; [facility] No tobacco use 04/26/2019 Last Documented On 0 1:51PM ; [facility] Smoking status : Never smoker 04/26/2019 Last Documented On 0 1:51PM ; [facility] Alcohol use 04/26/2019 Last Documented On 0 1:51PM ; [facility] Caffeine use 04/26/2019 Last Documented On 0 1:51PM ; [facility] Exercising regularly 04/26/2019 Last Documented On 0 1:51PM ; [facility] No recent change in diet 04/26/2019 Last Documented On 0 1:51PM ; [facility] Not a current smoker 04/26/2019 Last Documented On 0 1:51PM ; [facility] Not using drugs 04/26/2019 Last Documented On 0 1:51PM ; [facility] Medical History Includes: Medical History in patient's chart Description Last Updated History of Fractures 07/06/2021 Last Documented On 2 11:49AM ; [facility] No recent immunization for pneumococcal pneumonia 07/06/2021 Last Documented On 2 11:49AM ; [facility] Recent immunization for flu 07/06/2021 Last Documented On 2 11:49AM ; [facility] heartburn/acid reflux 04/26/2019 Last Documented On 0 1:51PM ; [facility] A previous fracture 04/26/2019 Last Documented On 0 1:51PM ; [facility] Arthritic joint problems 04/26/2019 Last Documented On 0 1:51PM ; [facility] Family History Includes: Family History in patient's chart Description Last Updated Family history of cancer 04/26/2019 Last Documented On 0 1:51PM ; [facility] Family history of heart disease 04/26/19 Last Documented On 0 1:51PM ; [facility] Review of Systems Review of Systems not [...] Patient Last Documented On 2 9:10AM ; [facility] Allergies Includes: Active, inactive, and resolved Allergies Substance Type Reaction Onset Date Resolved Date Statu s Penicillin G Benzathine Allergy 04/26/2019 Active Last Documented On 2 8:16AM ; [facility] Insurance Includes: Active Insurance Policies Plan Name Member ID Group # Subscriber Relationship Effect chico Dates 1 - [facility] [id number] Waqar Smith Self 02/06/2019 - Unknown Clinical Notes Includes: Signed Clinical Notes starting from 01/20/2022 No Clinical Notes Recorded
--- OUTSIDE RECORDS SUMMARY | 2024-12-26 23:30 | XMS_ITS ---
Care Plan - [facility], [facility] Created on: December 26, 2024 Waqar Smith : 1965 Sex: Male Author Organization [facility] Address [address] [place] [address] Phone Care Team Providers Care C4 Planner Name Role Phone Karely DUNBAR, Marcelo York Unavailable [phone] KAMRAN CEE MD Primary Care Provider [phone]
[2024-12-26 23:41] LABS: Albumin Level 4.8 g/dl (3.5-5.0); Chloride 101 mmol/L (98-107); Sodium 142 mmol/L (136-145)
[2024-12-26 23:42] LABS: Potassium 3.9 mmoL/L (3.5-5.1)
[2024-12-26 23:44] LABS: Alanine Aminotransferase 47 U/L (12-78); Albumin/Globulin Ratio 1.3 (1.1-1.8); Alkaline Phosphatase 71 U/L (38-126); Anion Gap 18.9 mEq/L (5-15); Aspartate Amino Transferase 40 U/L (17-59); Bilirubin,Total 0.8 mg/dl (0.2-1.3); Blood Urea Nitrogen 16 mg/dl (9-20); Carbon Dioxide 26 mmol/L (22.0-30.0); Creatinine Clearance Estimated 124 mL/min (50-200); Creatinine,Serum 0.80 mg/dl (0.66-1.25); Estimated Glomerular Filt Rate 100 ml/min (>60); GFR (African American) 121 ML/MIN (>60); Globulin 3.7 g/dL (1.3-3.2); Glucose 125 mg/dl (74-100); Lipase 87 U/L (23-300); Total Protein,Serum 8.5 g/dl (6.3-8.2)
[2024-12-26 23:45] LABS: Calcium 9.1 mg/dl (8.4-10.2)
[2024-12-26 23:46] LABS: INR 1.02 (0.9-1.1); Prothrombin Time 11.3 seconds (10.1-12.5)
[2024-12-27] MEDS: SODIUM CHLORIDE 0.9% 10ML SYR (RAD ONLY) 10 ML IV (00:02)
[2024-12-27] MEDS: IOPAMIDOL-370 (76%);100ML BOTTLE 75 ML IV (00:02)
--- NOTE | 2024-12-27 00:21 | ED_ITS ---
Discharge Plan Disposition Patient Disposition: Home, Self-Care Condition: Good Prescriptions Prescriptions: No Action erythromycin 5 mg/gram (0.5 %) ointment 0.5 inch ophthalmic (eye) BID 10 Days Qty: 3.5 0RF Referrals Follow up/Referrals: Provider,Referral, [Primary Care Provider, Medical] - See instructions Activity Restrictions/Add. Instructions Additional Instructions/Restrictions: You were evaluated in the ER and are believed to be appropriate for discharge at this time. Continue the antibiotics you are previously prescribed as well as your probiotic and any other home medications. Drink plenty of water, Gatorade, Pedialyte to stay hydrated. Eat a bland diet. Make an appointment with your primary care doctor for reevaluation in 2 to 3 days. Return to the ER with any new, worsening, or otherwise concerning symptoms as discussed including but not limited to profusely bloody diarrhea, fevers above 100.4, or worsening pain. Clinical Impressions Clinical Impression: Colitis Instructions Patient Instructions: DI for Colitis Print Language Print Language: Kyrgyz Discharge ED Provider: Sam Cassidy General Adult HPI General Chief complaint: Abdominal Pain Stated complaint: abd pain, bloody diarrhea, low fever Time Seen by Provider: 12/26/24 23:11 Mode of Arrival: Ambulatory Source of Information: Patient Description of Symptoms (Recalled from ER Triage Doc. by RN): Pt states he woke up at 3am today with severe abdominal pain and diarrhea. States he had blood when he wiped as well as bloody in stool. Thought he may have food poisoning, seemed to progress throughout the day so he came to be checked out. Pain is 5/10 at midline, tender to touch. History of Present Illness HPI narrative: 59-year-old male presents to the ER with slightly less than 24 hours of abdominal pain, diarrhea. Patient reports he has had multiple episodes of diarrhea that started off normal in appearance, then he started having small amount of blood when he wiped, and now he states some of his stool is streaked with blood as well. At first he thought he may have food poisoning but it seemed to continue getting worse and at home he thought he had a fever, thermometer at home read 100.4 but he was 98.0 on arrival to the ER shortly thereafter without taking any antipyretics. Patient reports discomfort primarily in the lower abdomen and demonstrates to the suprapubic area but states he has no dysuria or hematuria, denies back pain or groin pain. No other complaints or concerns. Denies headache or dizziness, no numbness, tingling, or weakness, no chest pain or difficulty breathing, no nausea or vomiting. Related Data Previous Rx's ?Medication ?Instructions ?Recorded erythromycin 5 mg/gram (0.5 %) eye 0.5 inch ophthalmic (eye) BID 10 11/26/22 ointment days #3.5 grams Allergies Allergy/AdvReac Type Severity Reaction Status Date / Time Penicillins Allergy Verified 11/26/22 08:28 [facility] Disclaimer: The information contained in this section may have been updated after the patient was seen, as this information can be updated by other users. Social History Smoking Status: Never smoker alcohol intake: current alcohol intake frequency: holidays/special occasions only current occupational status: employed Travel in the last 8 weeks?: None caffeine: Yes Have you lived/traveled outside [place] in past 30 days?: No Contact w/someone who lives/traveled outside [place] past 30 days?: No Exposure to someone with infectious disease in past 14 days?: No Do you have a fever (greater than 100.4 F or 38 C)?: Yes Have you tested positive for COVID-19?: No Exposed to someone with COVID-19 in past 14 days?: No Do you have a sore throat?: No Do you have a cough?: No Do you have any weakness?: No Do you have any diarrhea?: Yes Are you experiencing any unusual bleeding?: No Do you have any muscle aches/pain?: No Do you have any abdominal pain?: Yes Are you experiencing loss of taste or smell?: No Other Medical History Have you received the Pneumonia Vaccine: No ROS Obtained: Yes Systems reviewed as appropriate & no additional complaints except as documented Per HPI Physical Exam General General appearance: alert and in no apparent distress Head Head exam: atraumatic and normocephalic Eye Eye exam: Present PERRL and EOMI ENT ENT exam: Present mucous membranes moist Neck Neck exam: Present normal inspection and full ROM Chest Chest inspection: Present symmetric chest wall rise Respiratory Respiratory exam: Present normal lung sounds bilaterally; Absent respiratory distress, wheezes or stridor Cardiovascular Cardiovascular exam: Present regular rate and normal rhythm Abdominal Exam Abdominal exam: Present soft and tenderness (Moderate suprapubic tenderness with mild left lower and right lower quadrant tenderness); Absent distention, guarding or rebound Rectal Exam Rectal exam: Present normal inspection; Absent hemorrhoids or other (No fissure) Extremities Exam Extremities exam: Present full ROM and normal capillary refill; Absent edema Back Exam Back exam: Absent CVA tenderness (R) or CVA tenderness (L) Neurological Exam Neurological exam: Present alert and oriented X3; Absent motor sensory deficit Psychiatric Psychiatric exam: Present normal affect and normal mood Skin Skin exam: Present warm and dry Medical Decision Making Medical Records Medical records reviewed: Yes I reviewed the patient's medical records. Screening: Per USPSTF and CDC recommendations, given the prevalence of disease in our region, it is our hospital?s policy to screen for HIV and viral Hepatitis for all patients aged 18 and over and those with ongoing risk factors. Raj Inquiry Pt receiving controlled substance: No Vital Signs: 12/26/24 23:17 Temperature 98 F Temperature Source Oral Pulse Rate [Left] 91 H Respiratory Rate 16 Blood Pressure [Right Arm] 176/96 H Blood Pressure Mean [Right Arm] 122 Blood Pressure Source [Right Arm] Automatic Cuff Blood Pressure Position [Right Arm] Sitting 02 Sat by Pulse Oximetry 96 Oxygen Delivery Method Room Air Lab Data Lab Results 12/26/24 23:20: WBC 15.7 H, RBC 5.32, Hgb 15.5, Hct 45.1, MCV 84.8, MCH 29.1, MCHC 34.4, RDW 14.3, Plt Count 245, MPV 10.4, Neut % (Auto) 69.6, Lymph % (Auto) 20.6, Newton % (Auto) 8.1, Eos % (Auto) 0.8, Baso % (Auto) 0.3, Neut # (Auto) 10.9 H, Lymph # (Auto) 3.2, Newton # (Auto) 1.3 H, Eos # (Auto) 0.1, Baso # (Auto) 0.1, PT 11.3, INR 1.02, Sodium 142, Potassium 3.9, Chloride 101, Carbon Dioxide 26, A nion Gap 18.9 H, BUN 16, Creatinine 0.80, Estimated Creat Clear 124, Estimated GFR 100, Est GFR ( Amer) 121, Glucose 125 H, Lactate 1.8, Calcium 9.1, Total Bilirubin 0.8, AST 40, ALT 47, Alkaline Phosphatase 71, Total Protein 8.5 H, Albumin 4.8, Globulin 3.7 H, Albumin/Globulin Ratio 1.3, Lipase 87 12/26/24 23:20 12/26/24 23:20 Orders (Tests/Meds): ED MEDICATIONS Generic Name Dose Route Start Last Admin Trade Name Steveq PRN Reason Stop Dose Admin Sodium Chloride 10 ml 12/27/24 00:01 12/27/24 00:02 Sodium Chloride 0.9% 10ml Syr (Rad Only) IV 01/26/25 00:00 10 ml NEEDED PRN Administration Maintain IV Site Discontinued Medications Generic Name Dose Route Start Last Admin Trade Name Freq PRN Reason Stop Dose Admin Lactated Ringer's 1,000 mls @ 999 mls/hr 12/26/24 23:16 12/26/24 23:24 Lactated Ringer's 1000 Ml Bag IV 12/27/24 00:16 999 mls/hr .Q1H1M ONE Administration Iopamidol 75 ml 12/27/24 00:01 12/27/24 00:02 Iopamidol-370 (76%);100ml Bottle IV 12/27/24 00:02 75 ml ONCE ONE Administration Ketorolac Tromethamine 30 mg 12/26/24 23:16 12/26/24 23:23 Ketorolac 30mg/Ml Vial IV 12/26/24 23:17 30 mg ONCE ONE Administration ORDERS Category Date Time Status CT abdomen pelvis w con Stat Cat Scan 12/26/24 23:16 Completed Complete Blood Count Auto Diff Stat Lab 12/26/24 23:20 Completed Comprehensive Metabolic Panel Stat Lab 12/26/24 23:20 Completed Lactic Acid Stat Lab 12/26/24 23:20 Completed Lipase Stat Lab 12/26/24 23:20 Completed Prothrombin Time INR Stat Lab 12/26/24 23:20 Completed Urinalysis and Microscopic Stat Lab 12/26/24 23:16 Ordered Medical Decision Narrative: In summary, this 59-year-old male with comorbidities including hypertension, recent hand infection currently on cephalexin presents to the emergency department today with concerns of low abdominal pain, low-grade fever reported at home, bloody diarrhea. On initial evaluation patient is hemodynamically stable, afebrile, GCS 15, independently ambulatory into the ER, physical exam is only notable for mild to moderate suprapubic tenderness to palpation with mild tenderness in the left lower and right lower quadrants. No peritonitic findings, no evidence of hemorrhoids or anal fissure. Differential diagnosis includes but is not limited to viral syndrome, colitis, enteritis, I considered the possibility of severe infectious bloody diarrhea, diverticulitis, I considered UTI though I have very low suspicion for this, and patient has no evidence of hemorrhoids or anal fissure though this was also considered. Based on these concerns, I ordered hematologic and serum labs, CT imaging abdomen pelvis. Patient received Toradol and IV fluids for treatment. Labs personally reviewed demonstrate leukocytosis WBC 15.7, no anemia, normal platelets, PT/INR normal, CMP with mildly elevated anion gap likely related to volume losses and diarrhea, patient has already received IV fluids. Otherwise nonactionable. CT abdomen pelvis personally turbid demonstrates no findings of appendicitis or bowel obstruction, no evidence of diverticulitis, see radiology read for final interpretation which comments on colitis. There is no thickening of the bladder and patient has no dysuria or hematuria so I do not believe he requires further urinary workup at this time. On reassessment patient states he feels well. He has not been able to produce a stool sample in the ER which is reassuring since most severe diarrhea is are constant, persistent, and able to produce a sample readily. Since patient was afebrile here and is suspicious his thermometer at home may not be accurate and is feeling well at this time with reassuring vitals and labs otherwise I believe he is appropriate for discharge with close outpatient follow-up. He is agreeable to this. I instructed him to continue taking the antibiotic for the infection in his hand, he is already taking a probiotic prescribed by his PCP. I counseled and educated him on not using any antidiarrheal medications, educated on symptomatic monitoring and management at home, and gave the patient strict return precautions for the ER including frankly bloody diarrhea, melena, fevers above 100.4, or worsening pain. Patient indicated understanding to all instructions and was discharged in stable condition. Critical Care Critical Care Time Critical Care Time: No
[2024-12-27 00:24] LABS: Microscopic, Urine URINE MICROSCOPIC (MICROSCOPIC)
[2024-12-27 00:31] VITALS: BP 144/80; PULSE 64; RESP 16; TEMP 36.7; O2SAT 98
[2024-12-27 00:37] LABS: Bilirubin,Urine Negative (Negative); Color,Urine YELLOW (Yellow); Glucose,Urine (UA) Negative (Negative); Ketones,Urine Negative (Negative); Leukocyte Esterase,Urine Negative (Negative); PH,Urine 6.0 (5.0-8.5); Protein,Urine Negative (Negative); Specific Gravity, Urine 1.025 (1.005-1.030); Urobilinogen,Urine 0.2 EU/dl (0.2)
== END 2024-12-27 00:32 | disposition home or self-care (01) ==
PROVIDERS: Emergency Provider Emergency Medicine
DX: R10.30 Lower abdominal pain, unspecified (principal); K52.9 Noninfective gastroenteritis and colitis, unspecified
CPT/HCPCS: 74177; 80053; 81001; 83605; 83690; 85025; 85610; 96361; 96374; 99285; J1885; J7120; Q9967